=== PATIENT | male | born 1930 | race Caucasian/White ===

== ENCOUNTER 2017-08-18 03:13 | Emergency (ER) | payer MEDICARE, OTHER ==
[2017-08-18] MEDS ORDERED: predniSONE 10 MG Tab PO ONE (03:14)
[2017-08-18 03:49] VITALS: BP 141/90
[2017-08-18] MEDS ORDERED: Ketorolac 30 MG/ML SDV IM ONE (04:38)
[2017-08-18] MEDS ORDERED: predniSONE 10 MG Tab ONE (05:32)
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
== END 2017-08-18 05:45 | disposition home or self-care (01) ==
LOC: DL.ED 03:13
DX: M54.5 Low back pain (principal); I10 Essential (primary) hypertension; I25.2 Old myocardial infarction; E03.9 Hypothyroidism, unspecified; Z88.8 Allergy status to other drugs, medicaments and biological substances; Z79.82 Long term (current) use of aspirin; Z79.899 Other long term (current) drug therapy; Z87.891 Personal history of nicotine dependence
CPT/HCPCS: 36415; 72131; 74018; 80053; 85025; 96372; 99284; J1885; 99283; A9270-GY

== ENCOUNTER 2017-10-09 11:49 | Observation (INO) | payer MEDICARE, OTHER ==
[2017-10-09] MEDS ORDERED: Cyclobenzaprine 10 MG Tab PO PRN (13:30)
[2017-10-09] MEDS ORDERED: Acetaminophen 500 MG Tab PO PRN (13:30)
[2017-10-09] MEDS ORDERED: Polyethylene Glycol 3350 Powder 17 GM Packet PO PRN (13:30)
--- NOTE | 2017-10-09 14:55 | PCM.HP ---
H&P History of Present Illness - General Date of Service: 10/09/17 Admit Problem/Dx: Admission Diagnosis/Problem Admission Diagnosis/Problem Weakness Source of Information: Patient History Limitations: Reports: No Limitations - History of Present Illness Initial Comments - Free Text/Narative: patient is a 87-year-old male admitted because of generalized weakness. Patient was seen in the clinic, had a new complaint of left hand swelling, redness and pain. last week had a same problem on his right ankle and on his left ankle.his appetite has been very low. He denies any fever but has been having chills alternating with episodes of hot flashes. denies any chest pain, palpitations, shortness of breath. Last bowel movement was 2 weeks ago. No diarrhea. No hematuria nor dysuria. He has this murmur which he said has been chronic for him. He denies any headache, denies any dizziness. no rashes. No other signs of infection.has been having this low back pain, MRI did not show any surgical findings suggest disc problems. Has been going through therapy. also was noted to have low sodium. Initially this has improved however today, it went down to 129. other workup showed normal thyroid. Left Hand Pain Score (Numeric/FACES): 5 - Related Data Allergies/Adverse Reactions: Allergies Allergy/AdvReac Type Severity Reaction Status Date / Time atorvastatin calcium Allergy Muscle Verified 10/09/17 12:48 [From Lipitor] Aches simvastatin [From Zocor] Allergy Muscle Verified 10/09/17 12:48 Aches Home Medications: Home Meds Aspirin [Low Dose Aspirin EC] 81 mg PO BEDTIME 06/24/14 [History] Chondroitin/Glucosamine [Glucosamine-Chondroitin] 1 cap PO BID 06/24/14 [History ] Clopidogrel [Plavix] 75 mg PO DAILY 06/24/14 [History] Levothyroxine Sodium [Synthroid] 75 mcg PO ACBREAKFAST 06/24/14 [History] Lisinopril [Zestril] 10 mg PO BID 06/24/14 [History] [place]-3/DHA/Epa/Fish Oil [[place]-3 Fish Oil 1,000 MG Sfgl] 1,000 mg PO BID [History] Timolol [Betimol 0.5% Ophth Soln] 1 drop EYEBOTH BID 06/24/14 [History] Latanoprost [Xalatan 0.005% Ophth Soln] 1 drop EYEBOTH BID 08/18/17 [History] oxyCODONE HCl/Acetaminophen [Endocet 5-325 Tablet] 1 tab PO Q6H PRN 08/18/17 [ History] Acetaminophen 500 mg PO Q4H PRN 10/09/17 [History] Cyclobenzaprine [Flexeril] 5 mg PO Q8H PRN 10/09/17 [History] Polyethylene Glycol 3350 [MiraLAX] 17 gm PO BEDTIME PRN 10/09/17 [History] Sennosides/Docusate Sodium [Senna-S] 1 tab PO BEDTIME PRN 10/09/17 [History] Vits A,C,E/Lutein/Minerals [Vision Formula with Lutein Tab] 1 each PO BEDTIME [History] Past Medical History HEENT History: Reports: Cataract, Glaucoma, Hard of Hearing, Impaired Vision Cardiovascular History: Reports: Heart Murmur, Hypertension, [place], Stents Other Cardiovascular History: PAD; BRADYCARDIA Gastrointestinal History: Reports: Chronic Constipation, GERD, Hemorrhoids Other Gastrointestinal History: RECTAL BLEEDING, SOURCE INTERNAL HEMORRHOIDS Genitourinary History: Reports: Prostate Disorder, Urinary Incontinence Other Genitourinary History: PROSTRATE SURGERY Musculoskeletal History: Reports: Back Pain, Chronic Endocrine/Metabolic History: Reports: Hypothyroidism Other Endocrine/Metabolic History: HYPOTHYRIODISM Oncologic (Cancer) History: Reports: Other (See Below) Other Oncologic History: "skin cancer" Dermatologic History: Reports: Cellulitis, Eczema, Other (See Below) Other Dermatologic History: skin cancer - Infectious Disease History Infectious Disease History: Reports: Shingles - Past Surgical History HEENT Surgical History: Reports: Cataract Surgery Cardiovascular Surgical History: Reports: Coronary Artery Stent Other Cardiovascular Surgeries/Procedures: VASCULAR ENDOVASCULAR ANGIOGRAM GI Surgical History: Reports: Colonoscopy, Other (See Below) Other GI Surgeries/Procedures: HEMORRHOIDECTOMY Male Surgical History: Reports: Prostatectomy Endocrine Surgical History: Reports: None Musculoskeletal Surgical History: Reports: Knee Replacement Oncologic Surgical History: Reports: None Dermatological Surgical History: Reports: Skin Biopsy Social & Family History - Family History Family Medical History: Noncontributory - Tobacco Use Smoking Status *Q: Former Smoker Used Tobacco, but Quit: Yes Month/Year Tobacco Last Used: 1996 Second Hand Smoke Exposure: No - Caffeine Use Caffeine Use: Reports: Coffee, Tea - Alcohol Use Days Per Week of Alcohol Use: 7 Number of Drinks Per Day: 1 Total Drinks Per Week: 7 - Recreational Drug Use Recreational Drug Use: No H&P Review of Systems - Review of Systems: Review Of Systems: See Below General: Reports: Chills, Weakness, Fatigue, Diaphoresis Pulmonary: Reports: Cough (occasional) Cardiovascular: Reports: No Symptoms Gastrointestinal: Reports: Anorexia Genitourinary: Reports: No Symptoms Exam - Exam Exam: See Below - Vital Signs Vital Signs: Last Vital Signs Temp 99.6 F 10/09/17 12:59 Pulse 81 10/09/17 12:59 Resp 18 10/09/17 12:59 BP 145/60 H 10/09/17 12:59 Pulse Ox 100 10/09/17 12:59 Weight: 149 lb - Exam General: Alert, Oriented HEENT: Conjunctiva Clear Lungs: Clear to Auscultation, Normal Respiratory Effort Cardiovascular: Regular Rate, Regular Rhythm, Systolic Murmur GI/Abdominal Exam: Normal Bowel Sounds, Soft, Non-Tender Extremities: Other (slight swelling noted on the left hand, tenderness noted, no fluctuance, erythema and slight warmth noted.) Neuro Extensive - Mental Status: Alert, Oriented x3, Normal Cognition Neuro Extensive - Motor, Sensory, Reflexes: CN II-XII Intact, Other (decrease handgrip on the left upper extremity, able to lift left lower extremity against gravity but not able to do some resistance) - Patient Data Lab Results Last 24 hrs: Laboratory Results - last 24 hr 10/09/17 10/09/17 Range/Units 14:05 14:05 C-Reactive Protein 14.2 H (0.0-1.3) mg/dL Urine Color Yellow (YELLOW) Urine Appearance Clear (CLEAR) Urine pH 6.0 (5.0-9.0) Ur Specific [place] 1.020 (1.005-1.030) Urine Protein 100 H (NEGATIVE) Urine Glucose (UA) Negative (NEGATIVE) Urine Ketones Negative (NEGATIVE) Urine Occult Blood Moderate H (NEGATIVE) Urine Nitrite Negative (NEGATIVE) Urine Bilirubin Negative (NEGATIVE) Urine Urobilinogen 2.0 H (0.2-1.0) mg/dL Ur Leukocyte Esterase Negative (NEGATIVE) Anastacio Results Last 24 hrs: Microbiology 10/09/17 14:15 Anaerobic Blood Culture - Final Blood Problem List Initiated/Reviewed/Updated: Yes Orders Last 24hrs: Active Orders 24 hr Category Date Time Status Patient Status [ADT] Routine ADT 10/09/17 14:11 Ordered Intake and Output [RC] QSHIFT Care 10/09/17 14:11 Ordered Oxygen Therapy [RC] PRN Care 10/09/17 14:11 Ordered Up With Assistance [RC] ASDIRECTED Care 10/09/17 14:10 Ordered VTE/DVT Education [RC] PER UNIT ROUTINE Care 10/09/17 14:11 Ordered Vital Signs [RC] Q4H Care 10/09/17 14:11 Ordered Regular Diet [DIET] Diet 10/09/17 Dinner Ordered Chest 2V [CR] Routine Exams 10/09/17 13:57 Ordered Head wo Cont [CT] Routine Exams 10/09/17 14:45 Ordered CULTURE BLOOD [BC] Routine Lab 10/09/17 13:53 Ordered CULTURE BLOOD [BC] Routine Lab 10/09/17 14:03 Ordered URINALYSIS W/MICROSCOPIC [UA W/MICROSCOPIC] [URIN] Lab 10/09/17 14:00 Ordered Routine Acetaminophen [Tylenol Extra Strength] Med 10/09/17 13:30 Ordered 500 mg PO Q4H PRN Acetaminophen/oxyCODONE [Percocet 325-5 MG] Med 10/09/17 13:30 Ordered 1 tab PO Q6H PRN Aspirin [Halfprin] Med 10/09/17 21:00 Ordered 81 mg PO BEDTIME Clopidogrel [Plavix] Med 10/10/17 09:00 Ordered 75 mg PO DAILY Cyclobenzaprine [Flexeril] Med 10/09/17 13:30 Ordered 5 mg PO Q8H PRN Docusate Sodium/Sennosides [Senna Plus] Med 10/09/17 13:30 Ordered 1 tab PO BEDTIME PRN Latanoprost [Xalatan 0.005% Ophth Soln] Med 10/09/17 21:00 Ordered DOSE ml EYEBOTH BID Levothyroxine Med 10/10/17 06:00 Ordered 75 mcg PO ACBREAKFAST Lisinopril [Prinivil] Med 10/09/17 21:00 Ordered 10 mg PO BID [place]-3/DHA/Epa/Fish Oil [[place]-3 Fish Oil 1,000 MG Med 10/09/17 21:00 Ordered Sfgl] 1,000 mg PO BID Polyethylene Glycol 3350 [MiraLAX] Med 10/09/17 13:30 Ordered 17 gm PO BEDTIME PRN Sodium Chloride 0.9% [Normal Saline] 1,000 ml Med 10/09/17 13:45 Ordered IV ASDIRECTED Timolol [Betimol 0.5% Ophth Soln] Med 10/09/17 21:00 Ordered 1 drop EYEBOTH BID Vits A,C,E/Lutein/Minerals [Vision Formula with Lutein Med 10/09/17 21:00 Ordered Tab] 1 each PO BEDTIME Code Status [Resuscitation Status] Routine Resus Stat 10/09/17 14:45 Ordered Medication Orders Acetaminophen (Tylenol Extra Strength) 500 mg PO Q4H PRN PRN Reason: Pain Aspirin (Halfprin) 81 mg PO BEDTIME BERNY Clopidogrel Bisulfate (Plavix) 75 mg PO DAILY BERNY Cyclobenzaprine HCl (Flexeril) 5 mg PO Q8H PRN PRN Reason: Muscle Spasm Sodium Chloride (Normal Saline) 1,000 mls @ 125 mls/hr IV ASDIRECTED BERNY Latanoprost (Xalatan 0.005% Ophth Soln) 0 ml EYEBOTH BID BERNY Levothyroxine Sodium (Levothyroxine) 75 mcg PO ACBREAKFAST BERNY Lisinopril (Prinivil) 10 mg PO BID BERNY Multivitamins/Minerals (I-Sherri) 1 each PO BEDTIME BERNY Non-Formulary Medication ([place]-3/Dha/Epa/Fish Oil [[place]-3 Fish Oil 1,000 Mg Sfgl]) 1,000 mg PO BID BERNY Oxycodone/Acetaminophen (Percocet 325-5 Mg) 1 tab PO Q6H PRN PRN Reason: Pain (severe 7-10) Timolol [Betimol] 0. 5% Ophth Soln Pt' s Own Med 0 each EYEBOTH BID BERNY Polyethylene Glycol (Miralax) 17 gm PO BEDTIME PRN PRN Reason: Constipation Senna/Docusate Sodium (Senna Plus) 1 tab PO BEDTIME PRN PRN Reason: Constipation Assessment/Plan Comment:: Generalized weakness - CBC in the clinic showed leukocytosis. Patient was recently put on Medrol Dosepak for the back pain. However, given the fatigue, we'll workup for infectious causes. Blood cultures ordered, CRP and ESR. - Normal saline 125 mL per hour Hyponatremia - Normal saline with 25 mL per hour Repeat BMP Redness, tenderness and swelling on left hand - No injury or trauma - Given the leukocytosis, consider starting antibiotic Chronic low back pain - Continue oxycodone as needed, continue Tylenol Hypothyroidism - TSH in the clinic normal, continue current dose of Synthroid History of coronary artery disease, chest pain free - EKG in the clinic no acute findings CODE STATUS: Full code
[2017-10-09] MEDS: Sodium Chloride 0.9% 1,000 ML IV SCH ×2 (15:16→23:24)
[2017-10-09] MEDS ORDERED: cefTRIAXone 1 GM Vial IVPUSH SCH (16:00)
--- NOTE | 2017-10-09 16:01 | CT ---
Clinical history: 87-year-old hypertensive 149 pound male with a history of myocardial infarction and prostate cancer who presents now with left-sided weakness. No previous CT scans or MRI examinations of the head at this institution. Scan technique: Volume acquisition of data emergency unenhanced CT scan of the head and brain obtaine d while the patient was lying supine on the Siemens multi slice scanner [place], [place]. All data archived in the PACS system for storage and study (bone/brain windows). Interpretation: Abnormal. 1. *Several large areas of ischemic infarct involving the basal ganglia and periventricular white mat ter, right cerebral hemisphere, without obvious edema or mass effect on the underlying ventricles. Ot her scattered areas of microvascular ischemia both hemispheres. Symmetric severe atrophy. (Physiologi c midline pineal and symmetric choroid plexus calcifications) 2. No sign of acute intracerebral/intraventricular/subarachnoid bleed. 3. No hydrocephalus. Cerebellum and brainstem unremarkable for age. 4. No supratentorial or posterior fossa mass lesion. 5. Uniformly thick bony calvarium without sign of skull fracture, underlying brain contusion or epidu ral/subdural hematoma. 6. Symmetric clear pneumatization of the paranasal and the right mastoid sinuses (apparent chronic le ft mastoiditis).
--- NOTE | 2017-10-09 16:02 | CR ---
CLINICAL HISTORY: 87-year-old male with leukocytosis. Pneumonitis? INTERPRETATION: PA, lateral chest films reveal some chronic bronchitic inflammation with associated signs of apparent bronchospasm (air trapping). No new sign of lung mass, hilar lymphadenopathy or focal lobar pneumonia when compared directly to 26 October 2009 film. No atelectasis/collapse. No pneumothorax. Mid thoracic disc disease. Dense curvilinear calcifications arch of the aorta. Normal cardiac silhouette without alveolar edema. Subtle new blunting of the posterior left costophrenic sulcus since October 2009. CONCLUSION: Mild bronchitis. Blunting left costophrenic sulcus posteriorly. No lobar pneumonia.
[2017-10-09] MEDS: Acetaminophen/oxyCODONE 325-5 MG Tab PO PRN (19:30)
[2017-10-09] MEDS: Lisinopril 10 MG Tab PO SCH (20:37)
[2017-10-09] MEDS: Latanoprost 0.005% Ophth Soln 2.5 ML Bottle EYEBOTH SCH (20:38)
[2017-10-09] MEDS: TIMOLOL 0.5% EYEBOTH SCH (20:38)
[2017-10-09] MEDS ORDERED: Lutein/Minerals/Vit A,C & E Tab PO SCH (21:00)
[2017-10-09] MEDS ORDERED: CHONDROITIN PO SCH (21:00)
[2017-10-09] MEDS ORDERED: [UNRECOGNIZED DRUG - OTHER] PO SCH (21:00)
[2017-10-09] MEDS ORDERED: Aspirin 81 MG Tab.EC PO SCH (21:00)
[2017-10-09] MEDS ORDERED: Non-Formulary Medication 1 Each (Omega-3/Dha/Epa/Fish Oil [Omega-3 Fish Oil 1,000 Mg Sfgl] PO SCH (21:00)
[2017-10-09] MEDS ORDERED: GLUCOSAMINE PO SCH (21:00)
[2017-10-09] MEDS ORDERED: cefTRIAXone 1 GM Vial IVPUSH ONE (23:00)
[2017-10-10] MEDS: Acetaminophen/oxyCODONE 325-5 MG Tab PO PRN ×2 (01:36→08:18)
[2017-10-10] MEDS ORDERED: Levothyroxine 75 MCG Tab PO SCH (06:00)
[2017-10-10 07:17] LABS: CHLORIDE,CL 96 mmol/L (101-111); SODIUM,NA 125 mmol/L (135-145)
[2017-10-10] MEDS: Sodium Chloride 0.9% 1,000 ML IV SCH (07:27)
[2017-10-10] MEDS ORDERED: Clopidogrel 75 MG Tab PO SCH (09:00)
[2017-10-10] MEDS ORDERED: Enoxaparin 30 MG/0.3 ML Syringe SUBCUT SCH (09:00)
[2017-10-10] MEDS: Lisinopril 10 MG Tab PO SCH (09:44)
[2017-10-10] MEDS: Latanoprost 0.005% Ophth Soln 2.5 ML Bottle EYEBOTH SCH ×2 (09:46→10:08)
[2017-10-10] MEDS: TIMOLOL 0.5% EYEBOTH SCH (09:47)
[2017-10-10 10:22] VITALS: BP 114/39
[2017-10-10] MEDS ORDERED: cefTRIAXone 2 GM Vial IVPUSH SCH (16:00)
--- NOTE | 2017-10-10 16:39 | PCM.DCSUM1 ---
Discharge Summary - Hospital Course Brief History: Patient is 87 year old male admitted becuase of weakness, loss of appetite. recently evaluated due to hyponatremia and sodium was attempted to be corrected. Sodium was 129, a decrease from previous. Patient continued to feel really weak, not able to eat. continues to have back pain which he has been taking oxycodone and has been going to PT. recently had an episode of right foot redness and swelling which spontaneously resolved, and then was noted on the left foot and then on the left hand. denies any trauma to the mentioned joints. no numbness nor tingling. he has murmur and is aware of this and reported to be chronic. he has history of coronary artery disease, no recent cardiology visit. denies any chest pain nor palpitations. no headache nor dizziness. denies any focal weakness nor numbness. no exposure to any sick contacts. other labs done, showed a normal uric acid, creatinining improved, awaiting [place] and lyme's disease work up. due to persistent fatigue, weakness, admitted for further evaluation. - Discharge Data Discharge Date: 10/10/17 Discharge Disposition: DC/Tfer to Acute Hospital 02 Condition: Fair - Discharge Diagnosis/Problem(s) (1) Bacteremia SNOMED Code(s): 6738552 ICD Code: R78.81 - BACTEREMIA Status: Acute (2) Weakness SNOMED Code(s): 91654941 ICD Code: R53.1 - WEAKNESS Status: Acute (3) Swelling of left hand SNOMED Code(s): 567660781 ICD Code: M79.89 - OTHER SPECIFIED SOFT TISSUE DISORDERS Status: Acute (4) Hyponatremia SNOMED Code(s): 36519695 ICD Code: E87.1 - HYPO-OSMOLALITY AND HYPONATREMIA Status: Acute (5) Cerebral infarct SNOMED Code(s): 134701057 ICD Code: I63.9 - CEREBRAL INFARCTION, UNSPECIFIED Status: Acute Qualifiers: Cerebral infarction mechanism: unspecified mechanism Qualified Code(s): I63.9 - Cerebral infarction, unspecified - Patient Summary/Data Hospital Course: Patient initially was admitted under observation. initial tests ordered on admission includes CRP, ESR, blood culture, CT scan due to some left sided weakness on examination. due to the redness, tenderness, pain and swelling on the left hand and subsequently CRP was elevated, started on IV ceftriaxone. Chest xray ordered which showed just mild bronchitis and no signs of pneumonia. subsequently ESR was also elevated. he spiked fever subsequently. ROcephine was increased to total of 2g. around 18 hours since admission, blood cultures preliminary showed gram positive cocci in pairs and chains. on the day of transfer, left hand was noted to be more swollen. results were relayed to the patient and present during the encounter. recommendation to be transferred to Acute hospital for need of echocardiogram, need for infection disease and cardiology specialty, [place] agreed transfer. - Discharge Plan Home Medications: Home Meds Chondroitin/Glucosamine [Glucosamine-Chondroitin] 1 cap PO BID 06/24/14 [History ] Clopidogrel [Plavix] 75 mg PO DAILY 06/24/14 [History] Levothyroxine Sodium [Synthroid] 75 mcg PO ACBREAKFAST 06/24/14 [History] [place]-3/DHA/Epa/Fish Oil [[place]-3 Fish Oil 1,000 MG Sfgl] 1,000 mg PO BID [History] RX: Aspirin [Low Dose Aspirin EC] 81 mg PO BEDTIME 06/24/14 [History] RX: Lisinopril [Zestril] 10 mg PO BID 06/24/14 [History] RX: Timolol [Betimol 0.5% Ophth Soln] 1 drop EYEBOTH BID 06/24/14 [History] RX: Latanoprost [Xalatan 0.005% Ophth Soln] 1 drop EYEBOTH BID 08/18/17 [History ] oxyCODONE HCl/Acetaminophen [Endocet 5-325 Tablet] 1 tab PO Q6H PRN 08/18/17 [ History] RX: Acetaminophen 500 mg PO Q4H PRN 10/09/17 [History] RX: Cyclobenzaprine [Flexeril] 5 mg PO Q8H PRN 10/09/17 [History] RX: Polyethylene Glycol 3350 [MiraLAX] 17 gm PO BEDTIME PRN 10/09/17 [History] Sennosides/Docusate Sodium [Senna-S] 1 tab PO BEDTIME PRN 10/09/17 [History] Vits A,C,E/Lutein/Minerals [Vision Formula with Lutein Tab] 1 each PO BEDTIME [History] - General Info Functional Status: Reports: Pain Controlled, Ambulating - Review of Systems General: Reports: Fever Pulmonary: Reports: Cough (occasionall) Gastrointestinal: Reports: Decreased Appetite Genitourinary: Reports: No Symptoms Musculoskeletal: Reports: Arm Pain, Hand Pain, Back Pain Neurological: Reports: Weakness - Patient Data Vitals - Most Recent: Last Vital Signs Temp 99.3 F 10/10/17 10:21 Pulse 79 10/10/17 10:21 Resp 18 10/10/17 10:21 BP 114/39 L 10/10/17 10:21 Pulse Ox 100 10/10/17 10:21 Weight - Most Recent: 149 lb I&O - Last 24 hours: Intake & Output 10/10/17 10/10/17 10/10/17 06:59 14:59 22:59 Intake Total 1230 2063 Output Total 750 450 Balance 480 1613 Lab Results - Last 24 hrs: Laboratory Results - last 24 hr 10/10/17 10/10/17 Range/Units 06:12 06:12 WBC 13.4 H (5.0-10.0) 10^3/uL RBC 3.41 L (4.6-6.2) 10^6/uL Hgb 9.7 L (14.0-18.0) g/dL Hct 29.2 L (40.0-54.0) % MCV 85.6 D (80-100) fL MCH 28.4 (27.0-34.0) pg MCHC 33.2 (33.0-35.0) g/dL Plt Count 247 (150-450) 10^3/uL Neut % (Auto) 57.2 (42.2-75.2) % Lymph % (Auto) 28.8 (20.5-50.1) % [place] % (Auto) 13.1 H (2-8) % Eos % (Auto) 0.8 L (1.0-3.0) % Baso % (Auto) 0.1 (0.0-1.0) % Add Manual Diff Yes Neutrophils % (Manual) 59 (42-75) % Band Neutrophils % 4 % Lymphocytes % (Manual) 27 (20-50) % Monocytes % (Manual) 7 (2-8) % Eosinophils % (Manual) 1 (1-3) % Metamyelocytes % 1 Myelocytes % 1 Platelet Estimate Adequate Sodium 125 L (135-145) mmol/L Potassium 3.9 (3.6-5.0) mmol/L Chloride 96 L (101-111) mmol/L Carbon Dioxide 21.0 (21.0-31.0) mmol/L Anion Gap 11.9 BUN 34 H (7-18) mg/dL Creatinine 1.0 (0.6-1.3) mg/dL Est Cr Clr Drug Dosing 51.63 mL/min Estimated GFR (MDRD) > 60 Glucose 97 (74-105) mg/dL Calcium 8.2 L (8.4-10.2) mg/dl DANA Results - Last 24 hrs: Microbiology 10/09/17 14:05 Aerobic Blood Culture - Preliminary Blood Anaerobic Blood Culture - Preliminary 10/09/17 14:15 Aerobic Blood Culture - Preliminary Blood Anaerobic Blood Culture - Final Med Orders - Current: Current Medications Discontinued Medications Acetaminophen (Tylenol Extra Strength) 500 mg PO Q4H PRN PRN Reason: Pain Last Admin: 10/09/17 20:47 Dose: 500 mg Aspirin (Halfprin) 81 mg PO BEDTIME [facility] Last Admin: 10/09/17 20:37 Dose: 81 mg Ceftriaxone Sodium (Rocephin) 1 gm IVPUSH Q24H [facility] Last Admin: 10/09/17 16:14 Dose: 1 gm Ceftriaxone Sodium (Rocephin) 1 gm IVPUSH ONETIME ONE Stop: 10/09/17 23:01 Last Admin: 10/10/17 00:30 Dose: 1 gm Ceftriaxone Sodium (Rocephin) 2 gm IVPUSH Q24H [facility] Clopidogrel Bisulfate (Plavix) 75 mg PO DAILY [facility] Last Admin: 10/10/17 09:44 Dose: 75 mg Cyclobenzaprine HCl (Flexeril) 5 mg PO Q8H PRN PRN Reason: Muscle Spasm Enoxaparin Sodium (Lovenox) 30 mg SUBCUT DAILY [facility] Last Admin: 10/10/17 09:45 Dose: 30 mg Sodium Chloride (Normal Saline) 1,000 mls @ 125 mls/hr IV ASDIRECTED [facility] Last Infusion: 10/10/17 10:46 Dose: 125 mls/hr Latanoprost (Xalatan 0.005% Ophth Soln) 0 ml EYEBOTH BID [facility] Last Admin: 10/10/17 10:08 Dose: Not Given Levothyroxine Sodium (Levothyroxine) 75 mcg PO ACBREAKFAST [facility] Last Admin: 10/10/17 06:29 Dose: 75 mcg Lisinopril (Prinivil) 10 mg PO BID [facility] Last Admin: 10/10/17 09:44 Dose: 10 mg Multivitamins/Minerals (I-Sherri) 1 each PO BEDTIME [facility] Last Admin: 10/09/17 20:37 Dose: 1 each Non-Formulary Medication (Chondroitin/Glucosamine [Glucosamine-Chondroitin]) 1 cap PO BID [facility] Non-Formulary Medication ([place]-3/Dha/Epa/Fish Oil [[place]-3 Fish Oil 1,000 Mg Sfgl]) 1,000 mg PO BID [facility] Oxycodone/Acetaminophen (Percocet 325-5 Mg) 1 tab PO Q6H PRN PRN Reason: Pain (severe 7-10) Last Admin: 10/10/17 08:18 Dose: 1 tab Timolol [Betimol] 0. 5% Ophth Soln Pt' s Own Med 0 each EYEBOTH BID [facility] Last Admin: 10/10/17 09:47 Dose: 1 each Polyethylene Glycol (Miralax) 17 gm PO BEDTIME PRN PRN Reason: Constipation Senna/Docusate Sodium (Senna Plus) 1 tab PO BEDTIME PRN PRN Reason: Constipation - Exam General: Reports: Alert, Oriented Neck: Reports: Supple Lungs: Reports: Clear to Auscultation, Normal Respiratory Effort Cardiovascular: Reports: Regular Rate, Regular Rhythm, Murmurs GI/Abdominal Exam: Normal Bowel Sounds, Soft, Non-Tender
== END 2017-10-10 10:50 ==
LOC: DL.MS 12:22 → UNDOADMOB 12:22 → DL.MS 14:11
PROVIDERS: ADMIT Internal Medicine; ATTEND Internal Medicine
DX: R53.1 Weakness (principal); I63.9 Cerebral infarction, unspecified; R78.81 Bacteremia; M79.89 Other specified soft tissue disorders; E87.1 Hypo-osmolality and hyponatremia; R63.0 Anorexia; I25.10 Atherosclerotic heart disease of native coronary artery without angina pectoris; J40 Bronchitis, not specified as acute or chronic; I10 Essential (primary) hypertension; R01.1 Cardiac murmur, unspecified; I25.2 Old myocardial infarction; G89.29 Other chronic pain; M54.5 Low back pain; E03.9 Hypothyroidism, unspecified; Z79.02 Long term (current) use of antithrombotics/antiplatelets; Z88.8 Allergy status to other drugs, medicaments and biological substances; Z79.82 Long term (current) use of aspirin; Z95.5 Presence of coronary angioplasty implant and graft; Z85.828 Personal history of other malignant neoplasm of skin; Z90.49 Acquired absence of other specified parts of digestive tract; Z87.891 Personal history of nicotine dependence
CPT/HCPCS: 36415; 70450; 71046; 80048; 81001; 85025; 85651; 86140; 87040; 87077; 87186; 96361; 96372; 96374; 96376; A9270; G0378; J0696; J1650; J7030

== ENCOUNTER 2017-11-12 09:20 | Inpatient (IN) | payer MEDICARE, OTHER ==
[2017-11-12] MEDS ORDERED: Psyllium Husk Powder Sugar Free 5.85 GM Packet PO PRN (15:11)
[2017-11-12] MEDS ORDERED: traMADol 50 MG Tab PO PRN (15:11)
--- NOTE | 2017-11-12 15:22 | PCM.HP ---
H&P History of Present Illness - General Date of Service: 11/12/17 Admit Problem/Dx: Admission Diagnosis/Problem Admission Diagnosis/Problem Endocarditis Source of Information: Patient History Limitations: Reports: No Limitations - History of Present Illness Initial Comments - Free Text/Narative: 87 y.o.malewith a medical history of hypertension, coronary artery disease post stents, and radical prostatectomy for prostate cancer, who was admitted to swing bed at our facility after a prolonged five week hospital stay for endocarditis (aortic valve and mitral valve), septic arthritis (left wrist), osteomyelitis (L4-S1) and he eventually 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 He also had an NEW during the admission possibly from ATN vs interstitial nephritis and antibiotics were changed to Daptomycin. He is expected to receive six weeks of antibiotics to end on 12/03/2017. He has no complaints during my evaluation this afternoon. Having regular bowel movements. No chest pain, no shortness of breath, no cough. Has sacral ulcers, likely decubitus as documented on admission, and right chest tube wound - Related Data Allergies/Adverse Reactions: Allergies Allergy/AdvReac Type Severity Reaction Status Date / Time atorvastatin calcium Allergy Muscle Verified 11/12/17 13:49 [From Lipitor] Aches simvastatin [From Zocor] Allergy Muscle Verified 11/12/17 13:49 Aches Home Medications: Home Meds Aspirin [Low Dose Aspirin EC] 81 mg PO BEDTIME 06/24/14 [History] Chondroitin/Glucosamine [Glucosamine-Chondroitin] 1 cap PO BID 06/24/14 [History ] Levothyroxine Sodium [Synthroid] 75 mcg PO ACBREAKFAST 06/24/14 [History] Timolol [Betimol 0.5% Ophth Soln] 1 drop EYEBOTH BID 06/24/14 [History] Latanoprost [Xalatan 0.005% Ophth Soln] 1 drop EYEBOTH BEDTIME 08/18/17 [History ] Sennosides/Docusate Sodium [Senna-S] 1 tab PO DAILY PRN 10/09/17 [History] Vits A,C,E/Lutein/Minerals [Vision Formula with Lutein Tab] 1 each PO BEDTIME [History] Acetaminophen 650 mg PO Q4HR PRN 11/12/17 [History] Amiodarone [Cordarone] 200 mg PO DAILY 11/12/17 [History] Apixaban [Eliquis] 2.5 mg PO BID 11/12/17 [History] Bumetanide [Bumex] 1.5 mg PO BID 11/12/17 [History] DAPTOmycin [Daptomycin] 700 mg IV DAILY 11/12/17 [History] Digoxin 125 mcg PO DAILY 11/12/17 [History] Ferrous Sulfate 325 mg PO TID 11/12/17 [History] Guar Gum [Benefiber] 1 each PO TID PRN 11/12/17 [History] Potassium Chloride 20 meq PO BIDMEALS 11/12/17 [History] traMADol [Ultram] 50 mg PO Q6HR PRN 11/12/17 [History] Past Medical History HEENT History: Reports: Cataract, Glaucoma, Hard of Hearing, Impaired Vision Cardiovascular History: Reports: Heart Murmur, Hypertension, DE, Stents Other Cardiovascular History: PAD; BRADYCARDIA Gastrointestinal History: Reports: Chronic Constipation, GERD, Hemorrhoids Other Gastrointestinal History: RECTAL BLEEDING, SOURCE INTERNAL HEMORRHOIDS Genitourinary History: Reports: Prostate Disorder, Urinary Incontinence Other Genitourinary History: PROSTRATE SURGERY Musculoskeletal History: Reports: Back Pain, Chronic Endocrine/Metabolic History: Reports: Hypothyroidism Other Endocrine/Metabolic History: HYPOTHYRIODISM Oncologic (Cancer) History: Reports: Other (See Below) Other Oncologic History: "skin cancer" Dermatologic History: Reports: Cellulitis, Eczema, Other (See Below) Other Dermatologic History: skin cancer - Infectious Disease History Infectious Disease History: Reports: Shingles - Past Surgical History HEENT Surgical History: Reports: Cataract Surgery Cardiovascular Surgical History: Reports: Coronary Artery Stent Other Cardiovascular Surgeries/Procedures: VASCULAR ENDOVASCULAR ANGIOGRAM GI Surgical History: Reports: Colonoscopy, Other (See Below) Other GI Surgeries/Procedures: HEMORRHOIDECTOMY Male Surgical History: Reports: Prostatectomy Endocrine Surgical History: Reports: None Musculoskeletal Surgical History: Reports: Knee Replacement Oncologic Surgical History: Reports: None Dermatological Surgical History: Reports: Skin Biopsy Social & Family History - Family History Family Medical History: Noncontributory - Caffeine Use Caffeine Use: Reports: Coffee, Tea H&P Review of Systems - Review of Systems: Review Of Systems: ROS reveals no pertinent complaints other than HPI. Exam - Exam Exam: See Below - Vital Signs Vital Signs: Last Vital Signs Temp 36.0 C 11/12/17 13:50 Pulse 60 11/12/17 13:50 Resp 20 11/12/17 13:50 BP 97/70 11/12/17 13:50 Pulse Ox 96 11/12/17 13:50 Weight: 72.484 kg - Exam General: Alert, Oriented HEENT: Conjunctiva Clear Neck: Supple Lungs: Clear to Auscultation Cardiovascular: Regular Rate GI/Abdominal Exam: Normal Bowel Sounds Extremities: Pedal Edema, Other (left leg > right leg) Problem List Initiated/Reviewed/Updated: Yes Orders Last 24hrs: Active Orders 24 hr Category Date Time Status Patient Status [ADT] Routine ADT 11/12/17 14:48 Ordered Ambulate [RC] ASDIRECTED Care 11/12/17 14:48 Ordered Bedrest Bathroom Privileges [RC] ASDIRECTED Care 11/12/17 14:48 Ordered Height and Weight [RC] DAILY Care 11/12/17 14:48 Ordered Oxygen Therapy [RC] PRN Care 11/12/17 14:48 Ordered Up ad Vanda [RC] ASDIRECTED Care 11/12/17 14:48 Ordered Up to Chair [RC] ASDIRECTED Care 11/12/17 14:48 Ordered VTE/DVT Education [RC] PER UNIT ROUTINE Care 11/12/17 14:48 Ordered Vital Signs [RC] Q4H Care 11/12/17 14:48 Ordered OT Evaluation and Treatment [CONS] Routine Cons 11/12/17 14:48 Ordered PT Evaluation and Treatment [CONS] Routine Cons 11/12/17 14:48 Ordered Heart Healthy Diet [DIET] Diet 11/12/17 Lunch Ordered BASIC METABOLIC PANEL,BMP [CHEM] Routine Lab 11/12/17 14:47 Ordered BASIC METABOLIC PANEL,BMP [CHEM] Timed Lab 11/14/17 06:00 Ordered CREATINE KINASE,CK [CHEM] Routine Lab 11/12/17 14:47 Ordered CREATINE KINASE,CK [CHEM] Timed Lab 11/14/17 06:00 Ordered Acetaminophen [Tylenol] Med 11/12/17 15:11 Ordered 650 mg PO Q4HR PRN Amiodarone [Cordarone] Med 11/13/17 09:00 Ordered 200 mg PO DAILY Apixaban [Eliquis] Med 11/12/17 21:00 Ordered 2.5 mg PO BID Aspirin [Halfprin] Med 11/12/17 21:00 Ordered 81 mg PO BEDTIME Bumetanide [Bumex] Med 11/12/17 21:00 Ordered 1.5 mg PO BID Chondroitin/Glucosamine [Glucosamine-Chondroitin] Med 11/12/17 21:00 Ordered 1 cap PO BID DAPTOmycin [Cubicin] Med 11/13/17 09:00 Ordered 700 mg IV DAILY Digoxin [Lanoxin] Med 11/13/17 09:00 Ordered 125 mcg PO DAILY Docusate Sodium/Sennosides [Senna Plus] Med 11/12/17 15:11 Ordered 1 tab PO DAILY PRN Ferrous Sulfate Med 11/12/17 21:00 Ordered 325 mg PO TID Guar Gum [Benefiber] Med 11/12/17 15:11 Ordered 1 each PO TID PRN Latanoprost [Xalatan 0.005% Ophth Soln] Med 11/12/17 21:00 Ordered 1 drop EYEBOTH BEDTIME Levothyroxine Med 11/13/17 06:00 Ordered 75 mcg PO ACBREAKFAST Lutein/Minerals/Vit A,C & E [I-Sherri] Med 11/12/17 21:00 Ordered 1 each PO BEDTIME Potassium Chloride [Potassium Chloride] Med 11/12/17 18:00 Ordered 20 meq PO BIDMEALS Timolol [Betimol 0.5% Ophth Soln] Med 11/12/17 21:00 Ordered 1 drop EYEBOTH BID traMADol [Ultram] Med 11/12/17 15:11 Ordered 50 mg PO Q6HR PRN Resuscitation Status Routine Resus Stat 11/12/17 14:48 Ordered Medication Orders Acetaminophen (Tylenol) 650 mg PO Q4HR PRN PRN Reason: Pain/Fever Amiodarone HCl (Cordarone) 200 mg PO DAILY [facility] Aspirin (Halfprin) 81 mg PO BEDTIME [facility] Bumetanide (Bumex) 1.5 mg PO BID [facility] Daptomycin (Cubicin) 700 mg IV DAILY [facility] Digoxin (Lanoxin) 125 mcg PO DAILY [facility] Ferrous Sulfate (Ferrous Sulfate) 325 mg PO TID [facility] Latanoprost (Xalatan 0.005% Ophth Soln) ml EYEBOTH BEDTIME [facility] Levothyroxine Sodium (Levothyroxine) 75 mcg PO ACBREAKFAST [facility] Multivitamins/Minerals (I-Sherri) 1 each PO BEDTIME [facility] Non-Formulary Medication (Apixaban [Eliquis]) 2.5 mg PO BID [facility] Non-Formulary Medication (Chondroitin/Glucosamine [Glucosamine-Chondroitin]) 1 cap PO BID [facility] Non-Formulary Medication (Guar Gum [Benefiber]) 1 each PO TID PRN PRN Reason: Constipation Non-Formulary Medication (Potassium Chloride [Potassium Chloride]) 20 meq PO BIDMEALS [facility] Non-Formulary Medication (Timolol [Betimol 0.5% Ophth Soln]) 1 drop EYEBOTH BID [facility] Senna/Docusate Sodium (Senna Plus) 1 tab PO DAILY PRN PRN Reason: Constipation Tramadol HCl (Ultram) 50 mg PO Q6HR PRN PRN Reason: Pain Assessment/Plan Comment:: 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 No surgery done on mitral valve which has a very small ( ~ 2 mm ) vegetation. -Continue IV Daptomycin, to complete six weeks of antibiotics from 10/22/17 (End date 12/03/2017). -Check CPK today, and reassess weekly -ID clinic follow up in two weeks 2. NEW -Initially thought to be due to ATN due to hypotension (when he had surgery and post- op hemorrhage) and perhaps also from gentamicin as well. -With positive urine eosinophils ( seen on 10/28/17) and skin rash while on antibiotics; his kidney injury could be from interstitial nephritis. -Monitor Cr -continue Bumex 1.5mg BID -Nephrology follow up in clinic 3. Hypothyroidism -continue levothyroxine 4. Atrial Fibrillation Rate conttrol: continue digoxin, amiodarone Anticoagualtion: continue apixaban, renally dosed 5. PT/OT prolonged hospitalization/debility strenghtening exercises compression wraps for dependent pedal edema
[2017-11-12 15:53] LABS: ANION GAP 14.2
[2017-11-12] MEDS: Potassium Chloride 10 MEQ Tab.ER PO SCH (17:34)
[2017-11-12] MEDS: Bumetanide 1 MG Tab PO SCH (17:35)
[2017-11-12] MEDS: Ferrous Sulfate 325 MG Tab PO SCH (17:35)
[2017-11-12] MEDS ORDERED: Sodium Chloride 0.9% 10 ML Syringe FLUSH PRN (19:40)
[2017-11-12] MEDS ORDERED: DAPTOmycin 500 MG Vial IV SCH (21:00)
[2017-11-12] MEDS: Sodium Chloride 0.9% 10 ML Syringe FLUSH SCH (21:24)
[2017-11-12] MEDS: DAPTOmycin 500 MG Vial IV SCH (21:24)
[2017-11-12] MEDS: Timolol Maleate 0.5% Ophth Soln 5 ML Bottle EYEBOTH SCH (21:59)
[2017-11-12] MEDS: APIXABAN 2.5 MG PO SCH (22:01)
[2017-11-12] MEDS: Aspirin 81 MG Tab.EC PO SCH (22:02)
[2017-11-12] MEDS: Lutein/Minerals/Vit A,C & E Tab PO SCH (22:02)
[2017-11-12] MEDS: Latanoprost 0.005% Ophth Soln 2.5 ML Bottle EYEBOTH SCH (22:04)
[2017-11-13] MEDS: Levothyroxine 75 MCG Tab PO SCH (05:18)
[2017-11-13] MEDS: Bumetanide 1 MG Tab PO SCH ×2 (08:48→13:44)
[2017-11-13] MEDS: Digoxin 125 MCG Tab PO SCH (08:48)
[2017-11-13] MEDS: Acetaminophen 325 MG Tab PO PRN ×4 (08:49→23:26)
[2017-11-13] MEDS: Ferrous Sulfate 325 MG Tab PO SCH ×3 (08:49→18:34)
[2017-11-13] MEDS: Potassium Chloride 10 MEQ Tab.ER PO SCH ×2 (08:49→18:34)
[2017-11-13] MEDS: Amiodarone 200 MG Tab PO SCH (08:49)
[2017-11-13] MEDS: Sodium Chloride 0.9% 10 ML Syringe FLUSH SCH ×2 (08:50→20:31)
[2017-11-13] MEDS: Timolol Maleate 0.5% Ophth Soln 5 ML Bottle EYEBOTH SCH ×2 (08:50→20:32)
[2017-11-13] MEDS: APIXABAN 2.5 MG PO SCH ×2 (08:50→20:29)
[2017-11-13] MEDS ORDERED: Hydrocortisone 1% Crm 30 GM Tube TOP PRN (09:51)
[2017-11-13] MEDS: GLUCOSAMINE PO SCH (11:17)
[2017-11-13] MEDS: [UNRECOGNIZED DRUG - OTHER] PO SCH (11:17)
[2017-11-13] MEDS: CHONDROITIN PO SCH (11:17)
[2017-11-13] MEDS: Nystatin Susp 100,000 Unit/ML 5 ML UD Cup PO SCH (13:44)
[2017-11-13] MEDS: Polyethylene Glycol 3350 Powder 17 GM Packet PO SCH (13:44)
[2017-11-13] MEDS: Aspirin 81 MG Tab.EC PO SCH (20:30)
[2017-11-13] MEDS: DAPTOmycin 500 MG Vial IV SCH (20:30)
[2017-11-13] MEDS: Lutein/Minerals/Vit A,C & E Tab PO SCH (20:30)
[2017-11-13] MEDS: Latanoprost 0.005% Ophth Soln 2.5 ML Bottle EYEBOTH SCH (20:32)
[2017-11-14] MEDS ORDERED: diphenhydrAMINE 25 MG Tab PO ONE (00:22)
[2017-11-14] MEDS: Levothyroxine 75 MCG Tab PO SCH (06:03)
[2017-11-14 07:05] LABS: ANION GAP 15.9
[2017-11-14] MEDS: Polyethylene Glycol 3350 Powder 17 GM Packet PO SCH (09:13)
[2017-11-14] MEDS: Ferrous Sulfate 325 MG Tab PO SCH ×3 (09:14→17:19)
[2017-11-14] MEDS: Timolol Maleate 0.5% Ophth Soln 5 ML Bottle EYEBOTH SCH ×2 (09:14→21:45)
[2017-11-14] MEDS: Nystatin Susp 100,000 Unit/ML 5 ML UD Cup PO SCH (09:15)
[2017-11-14] MEDS: Digoxin 125 MCG Tab PO SCH (09:15)
[2017-11-14] MEDS: Potassium Chloride 10 MEQ Tab.ER PO SCH ×2 (09:17→17:19)
[2017-11-14] MEDS: Bumetanide 1 MG Tab PO SCH ×2 (09:17→13:55)
[2017-11-14] MEDS: Amiodarone 200 MG Tab PO SCH (09:17)
[2017-11-14] MEDS: APIXABAN 2.5 MG PO SCH ×2 (09:19→21:44)
[2017-11-14] MEDS: Sodium Chloride 0.9% 10 ML Syringe FLUSH SCH ×2 (13:55→21:37)
--- NOTE | 2017-11-14 14:28 | CT ---
CLINICAL HISTORY: 87-year-old male injured in fall. Patient reported on CT scan 09 October 2017 to have " several large areas of ischemic infarct basal ganglia and periventricular white matter right cerebral hemisphere". Follow-up evaluation please. SCAN TECHNIQUE: Volume acquisition of data from an unenhanced CT scan of the head and brain obtained while the patient was lying supine on the Siemens multislice scanner [place], [place]. All data archived in the PACS system for storage and study (bone/brain windows). INTERPRETATION: Uniformly thick bony calvarium and symmetric pneumatization frontal sinuses. No sign of skull fracture or underlying brain contusion and no new extracerebral/intracranial epidura l or subdural hematoma. Bilateral hearing aids. Severe but symmetric cerebral cortical atrophy with underlying mirror-image normal ventricular system . Multiple areas of decreased attenuation (infarcts) periventricular white matter/basal ganglia on the right as noted on previous exam. No new signs of ischemic infarct/encephalomalacia or acute intracerebral/intraventricular/subarachnoi d bleed. Cerebellum and brainstem unremarkable. Physiologic midline calcifications. CONCLUSION: No new signs of skull fracture or closed head injury. 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
[2017-11-14] MEDS: DAPTOmycin 500 MG Vial IV SCH (21:38)
[2017-11-14] MEDS: Lutein/Minerals/Vit A,C & E Tab PO SCH (21:44)
[2017-11-14] MEDS: Aspirin 81 MG Tab.EC PO SCH (21:44)
[2017-11-14] MEDS: Latanoprost 0.005% Ophth Soln 2.5 ML Bottle EYEBOTH SCH (21:45)
[2017-11-15] MEDS: Levothyroxine 75 MCG Tab PO SCH (05:48)
[2017-11-15] MEDS: Polyethylene Glycol 3350 Powder 17 GM Packet PO SCH (08:29)
[2017-11-15] MEDS: Potassium Chloride 10 MEQ Tab.ER PO SCH ×2 (08:30→19:28)
[2017-11-15] MEDS: Nystatin Susp 100,000 Unit/ML 5 ML UD Cup PO SCH (08:30)
[2017-11-15] MEDS: Amiodarone 200 MG Tab PO SCH (08:31)
[2017-11-15] MEDS: Digoxin 125 MCG Tab PO SCH (08:31)
[2017-11-15] MEDS: Ferrous Sulfate 325 MG Tab PO SCH ×3 (08:31→19:29)
[2017-11-15] MEDS: Bumetanide 1 MG Tab PO SCH ×3 (08:31→17:31)
[2017-11-15] MEDS: APIXABAN 2.5 MG PO SCH ×2 (08:35→20:58)
[2017-11-15] MEDS: Timolol Maleate 0.5% Ophth Soln 5 ML Bottle EYEBOTH SCH ×2 (08:44→20:59)
[2017-11-15] MEDS: Acetaminophen 325 MG Tab PO PRN (11:27)
[2017-11-15] MEDS: Sodium Chloride 0.9% 10 ML Syringe FLUSH SCH ×2 (11:30→21:15)
[2017-11-15] MEDS: Aspirin 81 MG Tab.EC PO SCH (20:59)
[2017-11-15] MEDS: Lutein/Minerals/Vit A,C & E Tab PO SCH (20:59)
[2017-11-15] MEDS: Latanoprost 0.005% Ophth Soln 2.5 ML Bottle EYEBOTH SCH (21:00)
[2017-11-15] MEDS: DAPTOmycin 500 MG Vial IV SCH (21:04)
[2017-11-15] MEDS: Acetaminophen 500 MG Tab PO SCH (21:10)
[2017-11-16] MEDS: Levothyroxine 75 MCG Tab PO SCH (06:14)
[2017-11-16] MEDS: Bumetanide 1 MG Tab PO SCH ×2 (08:32→13:00)
[2017-11-16] MEDS: Amiodarone 200 MG Tab PO SCH (08:32)
[2017-11-16] MEDS: Acetaminophen 500 MG Tab PO SCH ×2 (08:33→22:18)
[2017-11-16] MEDS: Ferrous Sulfate 325 MG Tab PO SCH ×3 (08:33→17:58)
[2017-11-16] MEDS: Polyethylene Glycol 3350 Powder 17 GM Packet PO SCH (08:34)
[2017-11-16] MEDS: Potassium Chloride 10 MEQ Tab.ER PO SCH ×2 (08:34→17:58)
[2017-11-16] MEDS: APIXABAN 2.5 MG PO SCH ×2 (12:57→22:19)
[2017-11-16] MEDS: Timolol Maleate 0.5% Ophth Soln 5 ML Bottle EYEBOTH SCH ×2 (12:59→22:16)
[2017-11-16] MEDS: Nystatin Susp 100,000 Unit/ML 5 ML UD Cup PO SCH (13:06)
[2017-11-16] MEDS: Sodium Chloride 0.9% 10 ML Syringe FLUSH SCH ×2 (13:10→22:50)
[2017-11-16] MEDS ORDERED: Ondansetron 4 MG/2 ML SDV IV PRN (17:50)
[2017-11-16] MEDS: Lutein/Minerals/Vit A,C & E Tab PO SCH (22:17)
[2017-11-16] MEDS: Aspirin 81 MG Tab.EC PO SCH (22:18)
[2017-11-16] MEDS: Latanoprost 0.005% Ophth Soln 2.5 ML Bottle EYEBOTH SCH (22:21)
[2017-11-16] MEDS: DAPTOmycin 500 MG Vial IV SCH (22:42)
[2017-11-17] MEDS: Levothyroxine 75 MCG Tab PO SCH (05:00)
[2017-11-17] MEDS: Bumetanide 1 MG Tab PO SCH ×2 (09:04→14:28)
[2017-11-17] MEDS: Ferrous Sulfate 325 MG Tab PO SCH ×3 (09:05→18:03)
[2017-11-17] MEDS: Potassium Chloride 10 MEQ Tab.ER PO SCH ×2 (09:05→18:03)
[2017-11-17] MEDS: APIXABAN 2.5 MG PO SCH ×2 (09:06→20:35)
[2017-11-17] MEDS: Amiodarone 200 MG Tab PO SCH (09:07)
[2017-11-17] MEDS: Polyethylene Glycol 3350 Powder 17 GM Packet PO SCH (09:07)
[2017-11-17] MEDS: Sodium Chloride 0.9% 10 ML Syringe FLUSH SCH ×2 (09:08→20:50)
[2017-11-17] MEDS: Nystatin Susp 100,000 Unit/ML 5 ML UD Cup PO SCH (09:08)
[2017-11-17] MEDS: Timolol Maleate 0.5% Ophth Soln 5 ML Bottle EYEBOTH SCH ×2 (09:09→20:40)
[2017-11-17] MEDS: Acetaminophen 500 MG Tab PO SCH ×2 (09:10→20:35)
[2017-11-17] MEDS ORDERED: Furosemide 40 MG/4 ML VIAL IVPUSH ONE (10:39)
[2017-11-17] MEDS ORDERED: Albuterol/Ipratropium 3.0-0.5 MG/3 ML Neb Soln NEB ONE (10:41)
[2017-11-17] MEDS: Aspirin 81 MG Tab.EC PO SCH (20:37)
[2017-11-17] MEDS: Lutein/Minerals/Vit A,C & E Tab PO SCH (20:37)
[2017-11-17] MEDS: Albuterol/Ipratropium 3.0-0.5 MG/3 ML Neb Soln NEB PRN (20:41)
[2017-11-17] MEDS: Latanoprost 0.005% Ophth Soln 2.5 ML Bottle EYEBOTH SCH (20:50)
[2017-11-17] MEDS: DAPTOmycin 500 MG Vial IV SCH (20:52)
[2017-11-18] MEDS ORDERED: diphenhydrAMINE 25 MG Tab PO ONE (01:18)
[2017-11-18] MEDS: Levothyroxine 75 MCG Tab PO SCH (05:53)
[2017-11-18 06:38] LABS: ANION GAP 17.2
[2017-11-18] MEDS: Bumetanide 1 MG Tab PO SCH ×2 (08:40→14:25)
[2017-11-18] MEDS: Ferrous Sulfate 325 MG Tab PO SCH ×3 (08:41→18:43)
[2017-11-18] MEDS: Potassium Chloride 10 MEQ Tab.ER PO SCH ×2 (08:41→18:43)
[2017-11-18] MEDS: Albuterol/Ipratropium 3.0-0.5 MG/3 ML Neb Soln NEB PRN (09:37)
[2017-11-18] MEDS: APIXABAN 2.5 MG PO SCH ×2 (09:38→20:28)
[2017-11-18] MEDS: Polyethylene Glycol 3350 Powder 17 GM Packet PO SCH (09:39)
[2017-11-18] MEDS: Amiodarone 200 MG Tab PO SCH (09:39)
[2017-11-18] MEDS: Nystatin Susp 100,000 Unit/ML 5 ML UD Cup PO SCH (09:40)
[2017-11-18] MEDS: Sodium Chloride 0.9% 10 ML Syringe FLUSH SCH ×2 (09:42→21:47)
[2017-11-18] MEDS: Timolol Maleate 0.5% Ophth Soln 5 ML Bottle EYEBOTH SCH ×2 (09:43→20:29)
[2017-11-18] MEDS: Acetaminophen 500 MG Tab PO SCH ×2 (09:45→20:27)
[2017-11-18] MEDS: Lutein/Minerals/Vit A,C & E Tab PO SCH (20:27)
[2017-11-18] MEDS: Aspirin 81 MG Tab.EC PO SCH (20:27)
[2017-11-18] MEDS: Latanoprost 0.005% Ophth Soln 2.5 ML Bottle EYEBOTH SCH (20:30)
[2017-11-18] MEDS: DAPTOmycin 500 MG Vial IV SCH (21:46)
[2017-11-19] MEDS: diphenhydrAMINE 25 MG Tab PO PRN (01:56)
[2017-11-19] MEDS: Levothyroxine 75 MCG Tab PO SCH (05:39)
--- NOTE | 2017-11-19 08:55 | PCM.PN ---
- General Info Date of Service: 11/19/17 Admission Dx/Problem (Free Text): Admission Diagnosis/Problem Admission Diagnosis/Problem Endocarditis Subjective Update: 87 y.o.malewith a medical history of hypertension, coronary artery disease post stents, and radical prostatectomy for prostate cancer, who was admitted to swing bed at our facility after a prolonged five week hospital stay for endocarditis (aortic valve and mitral valve), septic arthritis (left wrist), osteomyelitis (L4-S1) and he eventually 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 He also had an NEW during the admission possibly from ATN vs interstitial nephritis and antibiotics were changed to Daptomycin. He is expected to receive six weeks of antibiotics to end on 12/03/2017. Today patient has no new problem. No chest pain, no shortness of breath, no cough. Functional Status: Reports: Tolerating Diet, Ambulating, Urinating - Review of Systems General: Reports: Weakness HEENT: Reports: No Symptoms Pulmonary: Reports: No Symptoms Cardiovascular: Reports: No Symptoms Gastrointestinal: Reports: No Symptoms Genitourinary: Reports: No Symptoms Musculoskeletal: Reports: No Symptoms Skin: Reports: No Symptoms Neurological: Reports: No Symptoms Psychiatric: Reports: No Symptoms - Patient Data Vitals - Most Recent: Last Vital Signs Temp 97.6 F 11/19/17 07:39 Pulse 94 11/19/17 07:39 Resp 20 11/19/17 07:39 BP 139/49 L 11/19/17 07:39 Pulse Ox 100 11/19/17 07:39 Orthostatic Blood Pressure [ 113/41 Sitting] Orthostatic Blood Pressure [ 155/132 Standing] Orthostatic Blood Pressure [ 131/36 Supine] Weight - Most Recent: 158 lb 9.6 oz I&O - Last 24 Hours: Intake & Output 11/18/17 11/19/17 11/19/17 22:59 06:59 14:59 Intake Total 400 200 Balance 400 200 Med Orders - Current: Current Medications Acetaminophen (Tylenol Extra Strength) 1,000 mg PO Q12H [facility] Last Admin: 11/18/17 20:27 Dose: 1,000 mg Albuterol/Ipratropium (Duoneb 3.0-0.5 Mg/3 Ml) 3 ml NEB BIDRT PRN PRN Reason: Shortness of Breath Last Admin: 11/18/17 09:37 Dose: 3 ml Amiodarone HCl (Cordarone) 200 mg PO DAILY [facility] Last Admin: 11/18/17 09:39 Dose: 200 mg Aspirin (Halfprin) 81 mg PO BEDTIME [facility] Last Admin: 11/18/17 20:27 Dose: 81 mg Bumetanide (Bumex) 2 mg PO BIDDIURETIC [facility] Last Admin: 11/18/17 14:25 Dose: 2 mg Daptomycin (Cubicin) 700 mg IV BEDTIME [facility] Last Admin: 11/18/17 21:46 Dose: 700 mg Diphenhydramine HCl (Benadryl) 25 mg PO BEDTIME PRN PRN Reason: Sleep Last Admin: 11/19/17 01:56 Dose: 25 mg Ferrous Sulfate (Ferrous Sulfate) 325 mg PO TIDMEALS [facility] Last Admin: 11/18/17 18:43 Dose: 325 mg Hydrocortisone (Hydrocortisone 1% Crm) 0 gm TOP Q2H PRN PRN Reason: Hemorrhoids Last Admin: 11/13/17 13:44 Dose: 1 applic Latanoprost (Xalatan 0.005% Ophth Soln) 0 ml EYEBOTH BEDTIME [facility] Last Admin: 11/18/17 20:30 Dose: 2 drop Levothyroxine Sodium (Levothyroxine) 75 mcg PO ACBREAKFAST [facility] Last Admin: 11/19/17 05:39 Dose: 75 mcg Multivitamins/Minerals (I-Sherri) 1 each PO BEDTIME [facility] Last Admin: 11/18/17 20:27 Dose: 1 each Apixaban [Eliquis] 2 .5 Mg Non- Formulary Med 2.5 mg PO BID [facility] Last Admin: 11/18/17 20:28 Dose: 2.5 mg Nystatin (Mycostatin) 5 ml PO DAILY [facility] Last Admin: 11/18/17 09:40 Dose: 5 ml Ondansetron HCl (Zofran) 4 mg IV Q6HR PRN PRN Reason: Vomiting Polyethylene Glycol (Miralax) 17 gm PO DAILY [facility] Last Admin: 11/18/17 09:39 Dose: 17 gm Potassium Chloride (Klor-Con 10) 20 meq PO BIDMEALS [facility] Last Admin: 11/18/17 18:43 Dose: 20 meq Psyllium Husk (Metamucil Sugar Free) 1 pkt PO TID PRN PRN Reason: Constipation Last Admin: 11/13/17 08:51 Dose: 1 pkt Senna/Docusate Sodium (Senna Plus) 1 tab PO DAILY PRN PRN Reason: Constipation Last Admin: 11/15/17 08:35 Dose: 1 tab Sodium Chloride (Saline Flush) 10 ml FLUSH BID [facility] Last Admin: 11/18/17 21:47 Dose: 10 ml Sodium Chloride (Saline Flush) 10 ml FLUSH ASDIRECTED PRN PRN Reason: Keep Vein Open Last Admin: 11/17/17 11:18 Dose: 10 ml Timolol Maleate (Timoptic 0.5% Ophth Soln) 0 ml EYEBOTH BID [facility] Last Admin: 11/18/17 20:29 Dose: 2 drop Discontinued Medications Acetaminophen (Tylenol) 650 mg PO Q4HR PRN PRN Reason: Pain/Fever Last Admin: 11/15/17 11:27 Dose: 650 mg Albuterol/Ipratropium (Duoneb 3.0-0.5 Mg/3 Ml) 3 ml NEB ONETIME ONE Stop: 11/17/17 10:42 Last Admin: 11/17/17 12:00 Dose: 3 ml Bumetanide (Bumex) 1.5 mg PO BIDDIURETIC [facility] Last Admin: 11/15/17 15:22 Dose: Not Given Digoxin (Lanoxin) 125 mcg PO DAILY [facility] Last Admin: 11/15/17 08:31 Dose: 125 mcg Diphenhydramine HCl (Benadryl) 25 mg PO ONETIME ONE Stop: 11/14/17 00:23 Last Admin: 11/14/17 00:34 Dose: 25 mg Diphenhydramine HCl (Benadryl) 25 mg PO ONETIME ONE Stop: 11/18/17 01:19 Last Admin: 11/18/17 01:32 Dose: 25 mg Furosemide (Lasix) 60 mg IVPUSH NOW ONE Stop: 11/17/17 10:40 Last Admin: 11/17/17 11:18 Dose: 60 mg Non-Formulary Medication (Chondroitin/Glucosamine [Glucosamine-Chondroitin]) 1 cap PO BID [facility] Last Admin: 11/13/17 11:17 Dose: Not Given Tramadol HCl (Ultram) 50 mg PO Q6HR PRN PRN Reason: Pain - Exam General: Alert, Oriented HEENT: Pupils Equal, Pupils Reactive, EOMI, Mucous Membr. Moist/[place] Neck: Supple Lungs: Clear to Auscultation, Normal Respiratory Effort Cardiovascular: Regular Rate, Regular Rhythm GI/Abdominal Exam: Normal Bowel Sounds, Soft, Non-Tender, No Organomegaly, No Distention, No Abnormal Bruit, No Mass, Pelvis Stable (Male) Exam: No Hernia, Normal Inspection, Normal Prostate, Circumcised Back Exam: Normal Inspection, Full Range of Motion Extremities: Normal Inspection, Normal Range of Motion, Non-Tender, No Pedal Edema, Normal Capillary Refill Skin: Warm, Dry, Intact Wound/Incisions: Healing Well Neurological: No New Focal Deficit Psy/Mental Status: Alert, Normal Affect, Normal Mood - Problem List Review Problem List Initiated/Reviewed/Updated: Yes - Plan Plan:: 1. 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 No surgery done on mitral valve which has a very small ( ~ 2 mm ) vegetation. -Continue IV Daptomycin, to complete six weeks of antibiotics from 10/22/17 (End date 12/03/2017). -Check CPK today, and reassess weekly -ID clinic follow up in two weeks 2. NEW -Initially thought to be due to ATN due to hypotension (when he had surgery and post- op hemorrhage) and perhaps also from gentamicin as well. -With positive urine eosinophils ( seen on 10/28/17) and skin rash while on antibiotics; his kidney injury could be from interstitial nephritis. -Monitor Cr -continue Bumex 1.5mg BID -Nephrology follow up in clinic 3. Hypothyroidism -continue levothyroxine 4. Atrial Fibrillation -Rate conttrol -digoxin d/c by cardiology on 11/16 -continue amiodarone -Anticoagualtion: continue apixaban, renally dosed -for cardiology follow up today 5. PT/OT -prolonged hospitalization/debility -strenghtening exercises -compression wraps for dependent pedal edema
[2017-11-19] MEDS: Acetaminophen 500 MG Tab PO SCH ×2 (09:06→20:49)
[2017-11-19] MEDS: Bumetanide 1 MG Tab PO SCH ×2 (09:08→16:03)
[2017-11-19] MEDS: Amiodarone 200 MG Tab PO SCH (09:08)
[2017-11-19] MEDS: Potassium Chloride 10 MEQ Tab.ER PO SCH ×2 (09:08→17:33)
[2017-11-19] MEDS: Ferrous Sulfate 325 MG Tab PO SCH ×3 (09:08→17:33)
[2017-11-19] MEDS: Polyethylene Glycol 3350 Powder 17 GM Packet PO SCH (09:10)
[2017-11-19] MEDS: Nystatin Susp 100,000 Unit/ML 5 ML UD Cup PO SCH (09:11)
[2017-11-19] MEDS: APIXABAN 2.5 MG PO SCH ×2 (09:14→20:54)
[2017-11-19] MEDS: Timolol Maleate 0.5% Ophth Soln 5 ML Bottle EYEBOTH SCH ×2 (09:20→20:55)
[2017-11-19] MEDS: Sodium Chloride 0.9% 10 ML Syringe FLUSH SCH ×2 (12:08→20:56)
[2017-11-19] MEDS ORDERED: DAPTOmycin 500 MG Vial IV SCH (16:15)
[2017-11-19] MEDS: Aspirin 81 MG Tab.EC PO SCH (20:50)
[2017-11-19] MEDS: Lutein/Minerals/Vit A,C & E Tab PO SCH (20:50)
[2017-11-19] MEDS: Latanoprost 0.005% Ophth Soln 2.5 ML Bottle EYEBOTH SCH (20:55)
[2017-11-20] MEDS: Levothyroxine 75 MCG Tab PO SCH (05:37)
[2017-11-20] MEDS: Ferrous Sulfate 325 MG Tab PO SCH ×3 (09:35→17:28)
[2017-11-20] MEDS: Bumetanide 1 MG Tab PO SCH ×2 (09:35→13:18)
[2017-11-20] MEDS: Potassium Chloride 10 MEQ Tab.ER PO SCH ×2 (09:35→17:27)
[2017-11-20] MEDS: Nystatin Susp 100,000 Unit/ML 5 ML UD Cup PO SCH (09:36)
[2017-11-20] MEDS: APIXABAN 2.5 MG PO SCH ×2 (09:36→21:00)
[2017-11-20] MEDS: Acetaminophen 500 MG Tab PO SCH ×3 (09:36→21:02)
[2017-11-20] MEDS: Polyethylene Glycol 3350 Powder 17 GM Packet PO SCH (09:36)
[2017-11-20] MEDS: Timolol Maleate 0.5% Ophth Soln 5 ML Bottle EYEBOTH SCH ×2 (09:38→21:04)
[2017-11-20] MEDS: Sodium Chloride 0.9% 10 ML Syringe FLUSH SCH ×3 (09:39→21:16)
[2017-11-20] MEDS ORDERED: DAPTOmycin 500 MG Vial IV SCH (21:00)
[2017-11-20] MEDS: diphenhydrAMINE 25 MG Tab PO PRN (21:02)
[2017-11-20] MEDS: Lutein/Minerals/Vit A,C & E Tab PO SCH (21:03)
[2017-11-20] MEDS: Aspirin 81 MG Tab.EC PO SCH (21:04)
[2017-11-20] MEDS: Latanoprost 0.005% Ophth Soln 2.5 ML Bottle EYEBOTH SCH (21:04)
[2017-11-21] MEDS: Levothyroxine 75 MCG Tab PO SCH (05:48)
[2017-11-21] MEDS: Acetaminophen 500 MG Tab PO SCH ×2 (09:44→21:47)
[2017-11-21] MEDS ORDERED: [UNRECOGNIZED DRUG - REMARK] TOP SCH (09:45)
[2017-11-21] MEDS: Ferrous Sulfate 325 MG Tab PO SCH ×3 (09:45→17:24)
[2017-11-21] MEDS: Bumetanide 1 MG Tab PO SCH ×2 (09:45→13:01)
[2017-11-21] MEDS: APIXABAN 2.5 MG PO SCH ×2 (09:46→21:43)
[2017-11-21] MEDS: Potassium Chloride 10 MEQ Tab.ER PO SCH ×2 (09:46→17:24)
[2017-11-21] MEDS: Sodium Chloride 0.9% 10 ML Syringe FLUSH SCH ×2 (09:49→21:44)
[2017-11-21] MEDS: Polyethylene Glycol 3350 Powder 17 GM Packet PO SCH (09:49)
[2017-11-21] MEDS: Nystatin Susp 100,000 Unit/ML 5 ML UD Cup PO SCH (09:49)
[2017-11-21] MEDS: Timolol Maleate 0.5% Ophth Soln 5 ML Bottle EYEBOTH SCH ×2 (09:49→21:50)
[2017-11-21] MEDS: [UNRECOGNIZED DRUG - REMARK] TOP PRN ×2 (10:00→12:53)
[2017-11-21] MEDS ORDERED: Alteplase 2 MG Vial IVPUSH ONE ×3 (10:55→15:36)
[2017-11-21] MEDS: [UNRECOGNIZED DRUG - REMARK] TOP SCH (13:16)
[2017-11-21] MEDS: Lutein/Minerals/Vit A,C & E Tab PO SCH (21:43)
[2017-11-21] MEDS: Aspirin 81 MG Tab.EC PO SCH (21:43)
[2017-11-21] MEDS: Latanoprost 0.005% Ophth Soln 2.5 ML Bottle EYEBOTH SCH (21:49)
[2017-11-22] MEDS: Levothyroxine 75 MCG Tab PO SCH (05:52)
[2017-11-22] MEDS: [UNRECOGNIZED DRUG - REMARK] TOP PRN (05:52)
[2017-11-22 08:16] VITALS: BP 149/57
[2017-11-22] MEDS: Bumetanide 1 MG Tab PO SCH (08:30)
[2017-11-22] MEDS: Polyethylene Glycol 3350 Powder 17 GM Packet PO SCH (08:30)
[2017-11-22] MEDS: APIXABAN 2.5 MG PO SCH (08:31)
[2017-11-22] MEDS: Acetaminophen 500 MG Tab PO SCH (08:31)
[2017-11-22] MEDS: Ferrous Sulfate 325 MG Tab PO SCH ×2 (08:31→12:22)
[2017-11-22] MEDS: Timolol Maleate 0.5% Ophth Soln 5 ML Bottle EYEBOTH SCH (08:33)
[2017-11-22] MEDS: Sodium Chloride 0.9% 10 ML Syringe FLUSH SCH (08:34)
[2017-11-22] MEDS: Nystatin Susp 100,000 Unit/ML 5 ML UD Cup PO SCH (08:36)
[2017-11-22] MEDS: Potassium Chloride 10 MEQ Tab.ER PO SCH (09:37)
--- NOTE | 2017-11-22 09:41 | CT ---
Clinical history: 87-year-old 153 pound hypertensive male who has had chest surgery and reported on November to have "new interstitial infiltrate throughout much of the right lung and small new bilateral pleural effusions". Scan technique: Volume acquisition of data unenhanced CT scan of the chest obtained while the patient was lying supine on the Siemens multi slice CT scanner [facility]. All data archived in the PACS system for storage, reformatting axial/sagittal/coronal planes and study. Interpretation: Abnormal. 1. Dense coronary artery calcifications patient with sternotomy wires and left jugular venous cathete r that crosses the midline. Aortic valve prosthesis. Dense calcifications normal caliber thoracic aor ta. (Small pericardial effusion). 2. Large dependent bibasilar pleural effusions. 3. Cephalization of vascular flow and interstitial edema (underlying bullous emphysematous disease), particularly upper lobes. 4. "Shotty" subcentimeter mediastinal lymphadenopathy. No lung mass lesion or alveolar pneumonia. 5. Mild arthritic changes lumbar spine. Cholelithiasis. Unenhanced liver spleen and atrophic pancreas unremarkable. No ascites. Note: There is air (iatrogenic?) in the infraclavicular region, upper right chest. No foreign bodies. No pneumothorax. CONCLUSION: Signs of COPD and heart failure.
[2017-11-22] MEDS: [UNRECOGNIZED DRUG - REMARK] TOP SCH (11:20)
--- NOTE | 2017-11-22 11:50 | PCM.PN ---
- General Info Date of Service: 11/22/17 Admission Dx/Problem (Free Text): Admission Diagnosis/Problem Admission Diagnosis/Problem Endocarditis Subjective Update: 87 y.o.malewith a medical history of hypertension, coronary artery disease post stents, and radical prostatectomy for prostate cancer, who was admitted to swing bed at our facility after a prolonged five week hospital stay for endocarditis (aortic valve and mitral valve), septic arthritis (left wrist), osteomyelitis (L4-S1) and he eventually 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 He also had an NEW during the admission possibly from ATN vs interstitial nephritis and antibiotics were changed to Daptomycin. He is expected to receive six weeks of antibiotics to end on 12/03/2017. No chest pain, has mild shortness of breath - on 1 l nc supplement has been working with pt/ot tolerating leg wraps Functional Status: Reports: Pain Controlled, Tolerating Diet - Review of Systems General: Reports: Weakness. Denies: Fever Pulmonary: Reports: Shortness of Breath (mild). Denies: Cough, Wheezing Cardiovascular: Denies: Chest Pain Gastrointestinal: Denies: Abdominal Pain Genitourinary: Reports: Frequency Psychiatric: Reports: Anxiety - Patient Data Vitals - Most Recent: Last Vital Signs Temp 36.3 C 11/22/17 08:15 Pulse 85 11/22/17 08:15 Resp 20 11/22/17 08:15 BP 149/57 H 11/22/17 08:15 Pulse Ox 95 11/22/17 08:15 Orthostatic Blood Pressure [ 113/41 Sitting] Orthostatic Blood Pressure [ 155/132 Standing] Orthostatic Blood Pressure [ 131/36 Supine] Weight - Most Recent: 69.173 kg I&O - Last 24 Hours: Intake & Output 11/21/17 11/22/17 11/22/17 22:59 06:59 14:59 Intake Total 150 135 Output Total 700 1025 Balance -550 -890 Anastacio Results Last 24 Hours: Microbiology 11/19/17 17:00 Clostridium difficile (PCR) - Final Stool / Feces Med Orders - Current: Current Medications Acetaminophen (Tylenol Extra Strength) 1,000 mg PO Q12H [facility] Last Admin: 11/22/17 08:31 Dose: 1,000 mg Albuterol/Ipratropium (Duoneb 3.0-0.5 Mg/3 Ml) 3 ml NEB BIDRT PRN PRN Reason: Shortness of Breath Last Admin: 11/18/17 09:37 Dose: 3 ml Aspirin (Halfprin) 81 mg PO BEDTIME [facility] Last Admin: 11/21/17 21:43 Dose: 81 mg Bumetanide (Bumex) 2 mg PO TID [facility] Daptomycin (Cubicin) 700 mg IV Q48H [facility] Last Admin: 11/20/17 21:01 Dose: 700 mg Diphenhydramine HCl (Benadryl) 25 mg PO BEDTIME PRN PRN Reason: Sleep Last Admin: 11/20/17 21:02 Dose: 25 mg Ferrous Sulfate (Ferrous Sulfate) 325 mg PO TIDMEALS [facility] Last Admin: 11/22/17 08:31 Dose: 325 mg Hydrocortisone (Hydrocortisone 1% Crm) 0 gm TOP Q2H PRN PRN Reason: Hemorrhoids Last Admin: 11/13/17 13:44 Dose: 1 applic Latanoprost (Xalatan 0.005% Ophth Soln) 0 ml EYEBOTH BEDTIME [facility] Last Admin: 11/21/17 21:49 Dose: 1 drop Levothyroxine Sodium (Levothyroxine) 75 mcg PO ACBREAKFAST [facility] Last Admin: 11/22/17 05:52 Dose: 75 mcg Multivitamins/Minerals (I-Sherri) 1 each PO BEDTIME [facility] Last Admin: 11/21/17 21:43 Dose: 1 each Apixaban [Eliquis] 2 .5 Mg Non- Formulary Med 2.5 mg PO BID [facility] Last Admin: 11/22/17 08:31 Dose: 2.5 mg Triad Hydrophilic Wound Dressing Non -Form Med 0 each TOP ASDIRECTED PRN PRN Reason: WOUND CARE Last Admin: 11/22/17 05:52 Dose: 1 each Medihoney Non-Form (Med) 0 each TOP DAILY [facility] Last Admin: 11/22/17 11:20 Dose: 1 each Nystatin (Mycostatin) 5 ml PO BID [facility] Ondansetron HCl (Zofran) 4 mg IV Q6HR PRN PRN Reason: Vomiting Polyethylene Glycol (Miralax) 17 gm PO DAILY [facility] Last Admin: 11/22/17 08:30 Dose: 17 gm Potassium Chloride (Klor-Con 10) 20 meq PO BIDMEALS [facility] Last Admin: 11/22/17 09:37 Dose: 20 meq Psyllium Husk (Metamucil Sugar Free) 1 pkt PO TID PRN PRN Reason: Constipation Last Admin: 11/13/17 08:51 Dose: 1 pkt Senna/Docusate Sodium (Senna Plus) 1 tab PO DAILY PRN PRN Reason: Constipation Last Admin: 11/15/17 08:35 Dose: 1 tab Sodium Chloride (Saline Flush) 10 ml FLUSH BID [facility] Last Admin: 11/22/17 08:34 Dose: 10 ml Sodium Chloride (Saline Flush) 10 ml FLUSH ASDIRECTED PRN PRN Reason: Keep Vein Open Last Admin: 11/17/17 11:18 Dose: 10 ml Timolol Maleate (Timoptic 0.5% Ophth Soln) 0 ml EYEBOTH BID [facility] Last Admin: 11/22/17 08:33 Dose: 1 drop Discontinued Medications Acetaminophen (Tylenol) 650 mg PO Q4HR PRN PRN Reason: Pain/Fever Last Admin: 11/15/17 11:27 Dose: 650 mg Albuterol/Ipratropium (Duoneb 3.0-0.5 Mg/3 Ml) 3 ml NEB ONETIME ONE Stop: 11/17/17 10:42 Last Admin: 11/17/17 12:00 Dose: 3 ml Alteplase, Recombinant (Cathflo Activase) 2 mg IVPUSH ONETIME ONE Stop: 11/21/17 14:31 Last Admin: 11/21/17 14:34 Dose: 2 mg Alteplase, Recombinant (Cathflo Activase) 2 mg IVPUSH ONETIME ONE Stop: 11/21/17 15:37 Last Admin: 11/21/17 16:57 Dose: 2 mg Amiodarone HCl (Cordarone) 200 mg PO DAILY [facility] Last Admin: 11/19/17 09:08 Dose: 200 mg Bumetanide (Bumex) 1.5 mg PO BIDDIURETIC [facility] Last Admin: 11/15/17 15:22 Dose: Not Given Bumetanide (Bumex) 2 mg PO BIDDIURETIC [facility] Last Admin: 11/22/17 08:30 Dose: 2 mg Daptomycin (Cubicin) 700 mg IV BEDTIME [facility] Last Admin: 07/15/18 21:46 Dose: 700 mg Digoxin (Lanoxin) 125 mcg PO DAILY [facility] Last Admin: 11/15/17 08:31 Dose: 125 mcg Diphenhydramine HCl (Benadryl) 25 mg PO ONETIME ONE Stop: 11/14/17 00:23 Last Admin: 11/14/17 00:34 Dose: 25 mg Diphenhydramine HCl (Benadryl) 25 mg PO ONETIME ONE Stop: 11/18/17 01:19 Last Admin: 11/18/17 01:32 Dose: 25 mg Furosemide (Lasix) 60 mg IVPUSH NOW ONE Stop: 11/17/17 10:40 Last Admin: 11/17/17 11:18 Dose: 60 mg Non-Formulary Medication (Chondroitin/Glucosamine [Glucosamine-Chondroitin]) 1 cap PO BID [facility] Last Admin: 11/13/17 11:17 Dose: Not Given Nystatin (Mycostatin) 5 ml PO DAILY [facility] Last Admin: 11/22/17 08:36 Dose: 5 ml Tramadol HCl (Ultram) 50 mg PO Q6HR PRN PRN Reason: Pain - Exam Quality Assessment: Supplemental Oxygen General: Alert, Oriented Neck: Supple Lungs: Decreased Breath Sounds (at b/l bases) Cardiovascular: Regular Rate, Regular Rhythm GI/Abdominal Exam: Normal Bowel Sounds, Soft, Non-Tender Extremities: Pedal Edema (edema of feet, b/l thigh, has lymphedema wraps) Neurological: No New Focal Deficit Psy/Mental Status: Alert, Normal Affect, Normal Mood - Problem List Review Problem List Initiated/Reviewed/Updated: Yes - My Orders Last 24 Hours: My Active Orders 11/22/17 14:00 Bumetanide [Bumex] 2 mg PO TID 11/22/17 21:00 Nystatin [Mycostatin] 5 ml PO BID 11/23/17 05:15 BASIC METABOLIC PANEL,BMP [CHEM] AM CBC WITH AUTO DIFF [HEME] AM - Plan Plan:: 1. 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 No surgery done on mitral valve which has a very small ( ~ 2 mm ) vegetation. -Continue IV Daptomycin, to complete six weeks of antibiotics from 10/22/17 (End date 12/03/2017). -ID clinic follow up 2. NEW -Initially thought to be due to ATN due to hypotension (when he had surgery and post- op hemorrhage) and perhaps also from gentamicin as well. -With positive urine eosinophils ( seen on 10/28/17) and skin rash while on antibiotics; his kidney injury could be from interstitial nephritis. has significant fluid overload - effusion b/l seen on CT, leg/thigh edema increase Bumex to tid check elytes in AM -Monitor Cr -Nephrology follow up in clinic 3. Hypothyroidism -continue levothyroxine 4. Atrial Fibrillation -Rate control -digoxin d/c by cardiology on 11/16 -continue amiodarone -Anticoagulation: continue apixaban 5. PT/OT -prolonged hospitalization/debility -strenghtening exercises -compression wraps for dependent pedal edema d/w Analia Alvarez [employer] from cardiothoracic surgery d/w dr. Dinero from radiology - soft tissue air is likely procedure related, no Ptx
--- NOTE | 2017-11-22 12:30 | PCM.DCSUM1 ---
Discharge Summary - Hospital Course Free Text/Narrative:: Admitted from [facility] following valve replacement for endocarditis. 1. 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 No surgery done on mitral valve which has a very small ( ~ 2 mm ) vegetation. -Continue IV Daptomycin, to complete six weeks of antibiotics from 10/22/17 (End date 12/03/2017). -ID clinic follow up 2. NEW -Initially thought to be due to ATN due to hypotension (when he had surgery and post- op hemorrhage) and perhaps also from gentamicin as well. -With positive urine eosinophils ( seen on 10/28/17) and skin rash while on antibiotics; his kidney injury could be from interstitial nephritis. has significant fluid overload - effusion b/l seen on CT, leg/thigh edema increase Bumex to tid check elytes in AM -Monitor Cr -Nephrology follow up in clinic d/w Analia Alvarez, AUDREY Glover is recommending b/l thoracentesis will transfer to [facility] 3. Hypothyroidism -continue levothyroxine 4. Atrial Fibrillation -Rate control -digoxin d/c by cardiology on 11/16 -continue amiodarone -Anticoagulation: hold apixaban re: thoracentesis 5. PT/OT -prolonged hospitalization/debility -strenghtening exercises -compression wraps for dependent pedal edema d/w Analia Alvarez NP from cardiothoracic surgery d/w dr. Dinero from radiology - soft tissue air is likely procedure related, no Ptx Diagnosis: Stroke: No - Discharge Data Discharge Date: 11/22/17 Discharge Disposition: DC/Tfer to Acute Hospital 02 Condition: Good - Patient Summary/Data Consults: Consultations 11/12/17 14:48 OT Evaluation and Treatment [CONS] Routine PT Evaluation and Treatment [CONS] Routine 11/12/17 17:44 OT Evaluation and Treatment [CONS] Routine - Patient Instructions Diet: Regular Diet as Tolerated Activity: As Tolerated - Discharge Plan *PRESCRIPTION DRUG MONITORING PROGRAM REVIEWED*: Not Applicable *COPY OF PRESCRIPTION DRUG MONITORING REPORT IN PATIENT RUBI: Not Applicable Home Medications: Home Meds Aspirin [Low Dose Aspirin EC] 81 mg PO BEDTIME 06/24/14 [History] Chondroitin/Glucosamine [Glucosamine-Chondroitin] 1 cap PO BID 06/24/14 [History ] Levothyroxine Sodium [Synthroid] 75 mcg PO ACBREAKFAST 06/24/14 [History] Timolol [Betimol 0.5% Ophth Soln] 1 drop EYEBOTH BID 06/24/14 [History] Latanoprost [Xalatan 0.005% Ophth Soln] 1 drop EYEBOTH BEDTIME 08/18/17 [History ] Sennosides/Docusate Sodium [Senna-S] 1 tab PO DAILY PRN 10/09/17 [History] Vits A,C,E/Lutein/Minerals [Vision Formula with Lutein Tab] 1 each PO BEDTIME [History] Acetaminophen 650 mg PO Q4HR PRN 11/12/17 [History] Amiodarone [Cordarone] 200 mg PO DAILY 11/12/17 [History] Apixaban [Eliquis] 2.5 mg PO BID 11/12/17 [History] Bumetanide [Bumex] 1.5 mg PO BID 11/12/17 [History] DAPTOmycin [Daptomycin] 700 mg IV DAILY 11/12/17 [History] Digoxin 125 mcg PO DAILY 11/12/17 [History] Ferrous Sulfate 325 mg PO TID 11/12/17 [History] Guar Gum [Benefiber] 1 each PO TID PRN 11/12/17 [History] Potassium Chloride 20 meq PO BIDMEALS 11/12/17 [History] traMADol [Ultram] 50 mg PO Q6HR PRN 11/12/17 [History] - Discharge Summary/Plan Comment DC Time >30 min.: Yes (d/w dr. Dinero, Analia Alvarez NP) - General Info Date of Service: 11/22/17 Functional Status: Reports: Tolerating Diet, Ambulating - Review of Systems Pulmonary: Reports: Shortness of Breath (on oxygen) Cardiovascular: Denies: Chest Pain Gastrointestinal: Denies: Abdominal Pain - Patient Data Vitals - Most Recent: Last Vital Signs Temp 36.3 C 11/22/17 08:15 Pulse 85 11/22/17 08:15 Resp 20 11/22/17 08:15 BP 149/57 H 11/22/17 08:15 Pulse Ox 95 11/22/17 08:15 Orthostatic Blood Pressure [ 113/41 Sitting] Orthostatic Blood Pressure [ 155/132 Standing] Orthostatic Blood Pressure [ 131/36 Supine] Weight - Most Recent: 69.173 kg I&O - Last 24 hours: Intake & Output 11/21/17 11/22/17 11/22/17 22:59 06:59 14:59 Intake Total 150 135 Output Total 700 1025 Balance -550 -890 DANA Results - Last 24 hrs: Microbiology 11/19/17 17:00 Clostridium difficile (PCR) - Final Stool / Feces Med Orders - Current: Current Medications Acetaminophen (Tylenol Extra Strength) 1,000 mg PO Q12H BERNY Last Admin: 11/22/17 08:31 Dose: 1,000 mg Albuterol/Ipratropium (Duoneb 3.0-0.5 Mg/3 Ml) 3 ml NEB BIDRT PRN PRN Reason: Shortness of Breath Last Admin: 11/18/17 09:37 Dose: 3 ml Aspirin (Halfprin) 81 mg PO BEDTIME BERNY Last Admin: 11/21/17 21:43 Dose: 81 mg Bumetanide (Bumex) 2 mg PO TID BERNY Daptomycin (Cubicin) 700 mg IV Q48H BERNY Last Admin: 11/20/17 21:01 Dose: 700 mg Diphenhydramine HCl (Benadryl) 25 mg PO BEDTIME PRN PRN Reason: Sleep Last Admin: 11/20/17 21:02 Dose: 25 mg Ferrous Sulfate (Ferrous Sulfate) 325 mg PO TIDMEALS [facility] Last Admin: 11/22/17 12:22 Dose: 325 mg Hydrocortisone (Hydrocortisone 1% Crm) 0 gm TOP Q2H PRN PRN Reason: Hemorrhoids Last Admin: 11/13/17 13:44 Dose: 1 applic Latanoprost (Xalatan 0.005% Ophth Soln) 0 ml EYEBOTH BEDTIME BERNY Last Admin: 11/21/17 21:49 Dose: 1 drop Levothyroxine Sodium (Levothyroxine) 75 mcg PO ACBREAKFAST BERNY Last Admin: 11/22/17 05:52 Dose: 75 mcg Multivitamins/Minerals (I-Sherri) 1 each PO BEDTIME [facility] Last Admin: 11/21/17 21:43 Dose: 1 each Apixaban [Eliquis] 2 .5 Mg Non- Formulary Med 2.5 mg PO BID [facility] Last Admin: 11/22/17 08:31 Dose: 2.5 mg Triad Hydrophilic Wound Dressing Non -Form Med 0 each TOP ASDIRECTED PRN PRN Reason: WOUND CARE Last Admin: 11/22/17 05:52 Dose: 1 each Medihoney Non-Form (Med) 0 each TOP DAILY [facility] Last Admin: 11/22/17 11:20 Dose: 1 each Nystatin (Mycostatin) 5 ml PO BID [facility] Ondansetron HCl (Zofran) 4 mg IV Q6HR PRN PRN Reason: Vomiting Polyethylene Glycol (Miralax) 17 gm PO DAILY [facility] Last Admin: 11/22/17 08:30 Dose: 17 gm Potassium Chloride (Klor-Con 10) 20 meq PO BIDMEALS [facility] Last Admin: 11/22/17 09:37 Dose: 20 meq Psyllium Husk (Metamucil Sugar Free) 1 pkt PO TID PRN PRN Reason: Constipation Last Admin: 11/13/17 08:51 Dose: 1 pkt Senna/Docusate Sodium (Senna Plus) 1 tab PO DAILY PRN PRN Reason: Constipation Last Admin: 11/15/17 08:35 Dose: 1 tab Sodium Chloride (Saline Flush) 10 ml FLUSH BID [facility] Last Admin: 11/22/17 08:34 Dose: 10 ml Sodium Chloride (Saline Flush) 10 ml FLUSH ASDIRECTED PRN PRN Reason: Keep Vein Open Last Admin: 11/17/17 11:18 Dose: 10 ml Timolol Maleate (Timoptic 0.5% Ophth Soln) 0 ml EYEBOTH BID [facility] Last Admin: 11/22/17 08:33 Dose: 1 drop Discontinued Medications Acetaminophen (Tylenol) 650 mg PO Q4HR PRN PRN Reason: Pain/Fever Last Admin: 11/15/17 11:27 Dose: 650 mg Albuterol/Ipratropium (Duoneb 3.0-0.5 Mg/3 Ml) 3 ml NEB ONETIME ONE Stop: 11/17/17 10:42 Last Admin: 11/17/17 12:00 Dose: 3 ml Alteplase, Recombinant (Cathflo Activase) 2 mg IVPUSH ONETIME ONE Stop: 11/21/17 14:31 Last Admin: 11/21/17 14:34 Dose: 2 mg Alteplase, Recombinant (Cathflo Activase) 2 mg IVPUSH ONETIME ONE Stop: 11/21/17 15:37 Last Admin: 11/21/17 16:57 Dose: 2 mg Amiodarone HCl (Cordarone) 200 mg PO DAILY [facility] Last Admin: 11/19/17 09:08 Dose: 200 mg Bumetanide (Bumex) 1.5 mg PO BIDDIURETIC [facility], [facility] Last Admin: 11/15/17 15:22 Dose: Not Given Bumetanide (Bumex) 2 mg PO BIDDIURETIC [facility] Last Admin: 11/22/17 08:30 Dose: 2 mg Daptomycin (Cubicin) 700 mg IV BEDTIME [facility] Last Admin: 11/18/17 21:46 Dose: 700 mg Digoxin (Lanoxin) 125 mcg PO DAILY [facility] Last Admin: 11/15/17 08:31 Dose: 125 mcg Diphenhydramine HCl (Benadryl) 25 mg PO ONETIME ONE Stop: 11/14/17 00:23 Last Admin: 11/14/17 00:34 Dose: 25 mg Diphenhydramine HCl (Benadryl) 25 mg PO ONETIME ONE Stop: 11/18/17 01:19 Last Admin: 11/18/17 01:32 Dose: 25 mg Furosemide (Lasix) 60 mg IVPUSH NOW ONE Stop: 11/17/17 10:40 Last Admin: 11/17/17 11:18 Dose: 60 mg Non-Formulary Medication (Chondroitin/Glucosamine [Glucosamine-Chondroitin]) 1 cap PO BID [facility] Last Admin: 11/13/17 11:17 Dose: Not Given Nystatin (Mycostatin) 5 ml PO DAILY [facility] Last Admin: 11/22/17 08:36 Dose: 5 ml Tramadol HCl (Ultram) 50 mg PO Q6HR PRN PRN Reason: Pain - Exam Quality Assessment: Reports: Supplemental Oxygen General: Reports: Alert, Oriented Neck: Reports: Supple Lungs: Reports: Normal Respiratory Effort, Decreased Breath Sounds (at b/l bases ) GI/Abdominal Exam: Normal Bowel Sounds, Soft, Non-Tender Extremities: Pedal Edema (in thigh area)
[2017-11-22] MEDS ORDERED: Bumetanide 1 MG Tab PO SCH (14:00)
[2017-11-22] MEDS ORDERED: Nystatin Susp 100,000 Unit/ML 5 ML UD Cup PO SCH (21:00)
== END 2017-11-22 13:25 | DRG 307 ==
LOC: DL.MS 12:45 → UNDOADMIN 12:45 → DL.MS 13:38
PROVIDERS: ADMIT Hospitalist; ATTEND Hospitalist
DX: I08.0 Rheumatic disorders of both mitral and aortic valves (principal); M00.9 Pyogenic arthritis, unspecified; M46.27 Osteomyelitis of vertebra, lumbosacral region; N17.9 Acute kidney failure, unspecified; N12 Tubulo-interstitial nephritis, not specified as acute or chronic; J90 Pleural effusion, not elsewhere classified; M46.47 Discitis, unspecified, lumbosacral region; I10 Essential (primary) hypertension; I25.10 Atherosclerotic heart disease of native coronary artery without angina pectoris; I48.91 Unspecified atrial fibrillation; I73.9 Peripheral vascular disease, unspecified; E03.9 Hypothyroidism, unspecified; N42.9 Disorder of prostate, unspecified; H91.90 Unspecified hearing loss, unspecified ear; H54.7 Unspecified visual loss; I25.2 Old myocardial infarction; Z95.4 Presence of other heart-valve replacement; Z95.5 Presence of coronary angioplasty implant and graft; Z85.46 Personal history of malignant neoplasm of prostate; Z98.890 Other specified postprocedural states; L89.159 Pressure ulcer of sacral region, unspecified stage; Z79.899 Other long term (current) drug therapy; Z79.82 Long term (current) use of aspirin; Z79.01 Long term (current) use of anticoagulants; Z85.828 Personal history of other malignant neoplasm of skin
CPT/HCPCS: 36415; 70450; 71045; 71250; 80048; 80162; 82550; 83880; 84460; 85025; 85027; 85651; 86140; 87493; 94640; 97110-GO; 97110-GP; 97116-GP; 97140-GO; 97163-GP; 97167-GO; 97530-GO; 97535-GO; A9270-GY; J0878; J1940; J2997; J7050